=== PATIENT | female | born 1950 | race African-American/Black ===

== ENCOUNTER 2020-07-04 19:44 | Emergency (ER) | payer SELFPAY ==
[2020-07-04 19:54] VITALS: TEMP 98.6; BMI 28.3
[2020-07-04 21:39] LABS: BASO % 0.9 % (0-2.0); EOS % 0.8 % (0-4.5); HEMATOCRIT 39.9 % (32.4-45.2); HEMOGLOBIN 13.6 GM/dL (10.7-15.3); LYMPH % 33.4 % (8-40); MCH 33.8 pg (25.7-33.7); MCHC 34.2 g/dl (32.0-36.0); MEAN CELL VOLUME 98.7 fl (80-96); MEAN PLT VOLUME 7.8 fl (7.5-11.1); MONO % 4.9 % (3.8-10.2); PLATELET COUNT 195 K/MM3 (134-434); RBC 4.04 M/mm3 (3.60-5.2); RDW 12.1 % (11.6-15.6)
[2020-07-04 21:56] LABS: CHLORIDE 101 mmol/L (98-107); SODIUM 135 mmol/L (136-145)
[2020-07-04 21:58] LABS: CALCIUM 8.8 mg/dL (8.5-10.1)
[2020-07-04 21:59] LABS: ALBUMIN 4.3 g/dl (3.4-5.0); ANION GAP 14 MMOL/L (8-16); BLOOD UREA NITROGEN 9.4 mg/dL (7-18); CO2 21 mmol/L (21-32); GLUCOSE,RANDOM 269 mg/dL (74-106)
[2020-07-04 22:02] LABS: CREATININE 0.8 mg/dL (0.55-1.3); SGOT/AST 66 U/L (15-37); SGPT/ALT 75 U/L (13-61)
[2020-07-04 22:03] LABS: BILIRUBIN,TOTAL 0.5 mg/dL (0.2-1)
[2020-07-04 22:04] LABS: TOT PROT 7.6 g/dl (6.4-8.2)
[2020-07-04 22:05] LABS: ALK PHOS 172 U/L (45-117)
[2020-07-04] MEDS ORDERED: diphenhydrAMINE HCL 25 MG CAPSULE (FP) PO ONE ×2 (22:12→22:27)
[2020-07-04] MEDS ORDERED: ACETAMINOPHEN 500 MG TABLET (FP) PO ONE (22:12)
[2020-07-04] MEDS ORDERED: ACETAMINOPHEN 325 MG TABLET (FP) ONE (22:26)
[2020-07-04 22:37] VITALS: BP 155/76
[2020-07-04 23:34] VITALS: PULSE 95
== END 2020-07-04 22:38 | disposition home or self-care (01) ==
LOC: JER 19:44
DX: J20.9 Acute bronchitis, unspecified (principal); R05 Cough
CPT/HCPCS: 36415; 71046-TC-FY; 80053; 82550; 82553; 84484; 85025; 85379; 93005; 93010; 99285-25

== ENCOUNTER 2020-10-23 17:51 | Emergency (ER) | payer OTHER ==
[2020-10-23 18:48] VITALS: TEMP 98.6; BMI 22.6
[2020-10-23] MEDS ORDERED: BAMLANIVIMAB 700 MG in SODIUM CHLORIDE 250 ML IVPB ONE (19:35)
[2020-10-23 21:09] LABS: BASO % 0.6 % (0-2.0); EOS % 0.6 % (0-4.5); HEMATOCRIT 43.8 % (32.4-45.2); MCH 33.2 pg (25.7-33.7); MCHC 34.3 g/dl (32.0-36.0); MEAN PLT VOLUME 7.8 fl (7.5-11.1); MONO % 7.3 % (3.8-10.2); NEUT % 60.5 % (42.8-82.8); PLATELET COUNT 189 K/MM3 (134-434); RBC 4.52 M/mm3 (3.60-5.2); RDW 11.6 % (11.6-15.6); WHITE BLOOD COUNT 6.6 K/mm3 (4.0-10.0)
[2020-10-23 21:25] LABS: POTASSIUM 4.2 mmol/L (3.5-5.1)
[2020-10-23 21:27] LABS: ALBUMIN 4.5 g/dl (3.4-5.0); BLOOD UREA NITROGEN 9.7 mg/dL (7-18); CALCIUM 9.8 mg/dL (8.5-10.1)
[2020-10-23 21:31] LABS: CREATININE 0.5 mg/dL (0.55-1.3)
[2020-10-23 21:32] LABS: BILIRUBIN,TOTAL 0.6 mg/dL (0.2-1); TOT PROT 8.1 g/dl (6.4-8.2)
[2020-10-23 23:05] VITALS: BP 187/99; PULSE 69
== END 2020-10-23 23:13 | disposition home or self-care (01) ==
LOC: JER 17:51
PROC: 3E033GC Introduction of Other Therapeutic Substance into Peripheral Vein, Percutaneous Approach (ICD-10-PCS; principal; 2020-10-23)
DX: U07.1 COVID-19 (principal)
CPT/HCPCS: 36415; 71045-TC-FY; 80053; 85025; 93005; 93010; 96365; 99285-25; M0239; Q0239